=== PATIENT | male | born 1960 | race Asian ===

== ENCOUNTER 2024-09-18 16:23 | Emergency (ER) | payer BC ==
[~2024-09-18] VITALS: Ht 175.3 cm; Wt 89.6 kg
[2024-09-18 16:00] VITALS: PULSE 50; RESP 24; O2SAT 82
[2024-09-18 16:35] VITALS: BP 66/45; PULSE 96; RESP 24; TEMP 97.7; O2SAT 100
[2024-09-18] MEDS ORDERED: DOPamine 400MG/D5W[STANDARD] 250 ML IV PRN (16:45)
[2024-09-18] MEDS ORDERED: ROCURONIUM BROMIDE 10 MG/ML 5 ML VIAL ONE ×2 (16:48→17:15)
[2024-09-18] MEDS ORDERED: ETOMIDATE 2 MG/ML 10 ML VIAL ONE (16:48)
[2024-09-18] MEDS ORDERED: EPINEPHrine 5 MG in DEXTROSE 5%-WATER 245 ML IV PRN ×2 (17:00→17:15)
[2024-09-18 17:03] LABS: PLATELET COUNT (AUTO) 275 K/uL (150-450); RED BLOOD CELL COUNT(AUTO) 4.91 MIL/uL (4.50-5.90); RED CELL DISTRIBUTION WIDTH 14.8 % (11.5-14.5); WHITE BLOOD COUNT (AUTO) 16.1 K/uL (4.5-11.0)
[2024-09-18 17:05] LABS: CALCIUM, TOTAL 8.6 mg/dL (8.8-10.5); CREATININE 1.41 mg/dL (0.60-1.30); GLOMERULAR FILTR. RATE CALC 51 mL/min (>60); GLUCOSE,RANDOM 272 mg/dL (70-110); SODIUM SERUM 144 mmol/L (136-145); UREA NITROGEN, BLOOD 28 mg/dL (7-18)
[2024-09-18 17:11] LABS: CREATINE KINASE, TOTAL ONLY 96 U/L (39-308)
[2024-09-18] MEDS ORDERED: PROPOFOL 1000 MG/ISO-OSM 100 ML ONE (17:16)
[2024-09-18 17:17] LABS: TROPONIN I-HIGH SENSITIVITY 479 ng/L (<76)
[2024-09-18] MEDS ORDERED: LOSA1TAB42 PO (18:18)
[2024-09-18] MEDS ORDERED: ATOR10TA69 PO (18:18)
[2024-09-18] MEDS ORDERED: METF-446 PO (18:18)
[2024-09-18] MEDS ORDERED: PANT20TA18 PO (18:18)
== END 2024-09-18 21:07 ==
LOC: EMS 16:23
DX: I46.9 Cardiac arrest, cause unspecified (principal); Z79.899 Other long term (current) drug therapy
CPT/HCPCS: 99291; 93306; 92950; 31500; 80048; 82550; 83880; 84484; 85025; 85379; 85610; 85730; 36415; 93005; J1265; J0169; J3490 ×2; J2704; J7060